=== PATIENT | female | born 1985 | race Caucasian/White ===

== ENCOUNTER 2016-09-19 16:19 | Emergency (ER) | payer MEDICAID, SELFPAY ==
[2016-09-19 18:05] LABS: Bilirubin Negative (Negative); Blood, Urine Negative (Negative); Glucose, Urine (Dipstick) Negative (Negative); Ketone, Urine Negative (Negative); Nitrite Negative (Negative); Protein, Urine (Dipstick) Negative (Neg-Trace)
[2016-09-19 18:07] LABS: Bacteria/HPF Rare-Few HPF (None Seen); RBC/HPF None Seen HPF (0-3); WBC/HPF None Seen HPF (0-3)
[2016-09-19] MEDS ORDERED: Ondansetron ODT 4 MG TAB ONE (18:17)
[2016-09-19 18:40] LABS: #Basophils 0.1 thou/uL (0.0-0.2); #Eosinphils 0.2 thou/uL (0.0-0.7); #Lymphocytes 4.6 thou/uL (1.20-3.40); #Monocytes 0.7 thou/uL (0.11-0.59); #Neutrophils 7.6 thou/uL (1.40-6.50); %Basophils 0.8 % (0.0-1.0); %Eosinophils 1.4 % (0.0-10.0); %Lymphocytes 34.9 % (21.0-51.0); Hematocrit 42.5 % (36.0-47.0); Mean Platelet Volume 8.1 fL (7.4-10.4); Red Blood Cell (RBC) Count 4.62 mill/uL (4.20-5.40); White Blood Cell (WBC) Count 13.1 thou/uL (4.8-10.8)
[2016-09-19 18:54] LABS: ALT (SGPT) 10 U/L (0-55); AST (SGOT) 15 U/L (5-34); Alkaline Phosphatase 94 U/L (40-150); Anion Gap 11 mmol/L (10-20); BUN (Urea Nitrogen) 10 mg/dL (7.0-18.7); Bilirubin, Total 0.3 mg/dL (0.2-1.2); Calc. Creatinine Clearance 0 mL/min (70-130); Calcium 9.5 mg/dL (7.8-10.44); Carbon Dioxide 24 mmol/L (22-29); Chloride 110 mmol/L (98-107); Estimated GFR-MDRD Greater than 90; Globulin 2.8 g/dL (2.4-3.5); Protein, Total 6.8 g/dL (6.0-8.3)
--- NOTE | 2016-09-19 19:28 | ERRECORD ---
[facility] EMERGENCY RECORD HPI NAUSEA/VOMITING/DIARRHEA (18:17 MPUR) CHIEF COMPLAINT: Patient presents for evaluation of nausea, Patient presents for evaluation of vomiting. HISTORIAN: History provided by patient, 2 week hx of malaise, Nausea, vomiting, body aches, fatigue. LOCATION FEMALE: No localizing symptoms. TIME COURSE: Gradual onset of symptoms. EXACERBATED BY: Patient's condition exacerbated by nothing. RELIEVED BY: Patient's condition relieved by nothing. ROS (18:42 MPUR) CONSTITUTIONAL: Historian denies fever. EYES: Historian denies eye pain. ENT: occasional rhinorrhea. CARDIOVASCULAR: Historian denies chest pain. RESPIRATORY: Historian denies cough. GI: Historian denies diarrhea; vomiting one time today. MUSCULOSKELETAL: Historian denies arthralgias. SKIN: Historian denies rash. NEUROLOGIC: Historian denies seizures. ENDOCRINE: Historian denies skin changes. HEMO/LYMPHATIC: Historian denies easy bruising. PAST MEDICAL HISTORY (16:37 JPAR) MEDICAL HISTORY: Flu vaccine up to date, Tetanus immunization up to date, Pneumococcal vaccine not up to date. FEMALE SURGICAL HISTORY: Patient has no surgical history. PSYCHIATRIC HISTORY: Psychiatric history includes, anxiety. Last Panic Attack 4-5 months. SOCIAL HISTORY: Patient denies alcohol use, Patient denies drug use, Patient currently uses tobacco, smokes cigarettes, daily, Patient has smoked for 15 years, Patient smokes 1/2 packs per day. FAMILY HISTORY: Notes: cancer. KNOWN ALLERGIES penicillin G sodium CURRENT MEDICATIONS (16:34 JPAR) None VITAL SIGNS (16:29 JPAR) VITAL SIGNS: BP: 119/69, Pulse: 68, Resp: 16, Temp: 97.9 (Oral), Pain: 0, O2 sat: 99, Time: 09/19/2016 16:29. PHYSICAL EXAM CONSTITUTIONAL: Pulse normal, Blood pressure normal, Respiratory rate normal, Patient appears non toxic, Vital signs reviewed. (18:42 MPUR) &a-1R&a+25V*p+0X*p4958M*c152B*c15G*c2P*p-0X&a-25V&a+1RName: Nicolette Marie : 1985 F31 MedRec: [id number] AcctNum: [id number] Prepared: Ginette Sep 19, 2016 23:09 by Interface Page 1 of 3 pMD [facility] EMERGENCY RECORD HEAD: Head exam included findings of head atraumatic. (18:42 MPUR) EYES: Conjunctiva, Pale, Eye exam included findings of eyelids normal to inspection, Sclera normal. (18:42 MPUR) ENT: Nose exam shows slight congestion, no nasal deformity, mucous membranes moist. (18:42 MPUR) NECK: Neck exam included findings of normal range of motion, Thyroid normal, no meningeal signs, Trachea midline, no contusions. (18:42 MPUR) RESPIRATORY CHEST: Respiratory exam included findings of no respiratory distress, Breath sounds clear, no increased work of breathing, rate nl. (18:42 MPUR) CARDIOVASCULAR: Cardiovascular exam included findings of heart rate regular rate and rhythm, Heart sounds normal. (18:42 MPUR) ABDOMEN FEMALE: Abdominal exam included findings of abdomen tender, slight tenderness in RLQ., Liver normal, Spleen normal, no distension, no mass, no peritoneal signs, no rigidity, no guarding, no rebound. (18:47 MPUR) LOWER EXTREMITY: no cyanosis, no edema. (18:42 MPUR) NEURO: Speech normal, Memory normal, alert, moving all extremities well. (18:42 MPUR) SKIN: Skin exam included findings of skin warm, dry, no rash. (18:42 MPUR) PSYCHIATRIC: Psychiatric exam included findings of patient oriented to person place and time, Affect, flat, Judgment normal, Insight normal, Depressed affect, Recent memory normal. (18:42 MPUR) MEDICATION ADMINISTRATION SUMMARY Drug Name: Zofran ODT, Dose Ordered: 4 mg, Route: Sublingual, Status: Held, Time: 18:20 09/19/2016, Detailed record available in Medication Service section. DOCTOR NOTES TEXT: I have reviewed and agree with nurse's past medical, family, and social history as documented on chart. Pt's vital signs have been reviewed. (18:42 MPUR) WBC slightly increased but pt not anemic. Urine not concentrated. Complaints consistent with viral syndrome. Encouraged rest, fluids and F/U with primary care. (18:52 MPUR) PROBLEM LIST No recorded problems DIAGNOSIS (18:57 MPUR) FINAL: PRIMARY: viral syndrome. PRESCRIPTION (18:57 MPUR) &a-1R&a+25V*p+0X*h6513I*c152B*c15G*c2P*p-0X&a-25V&a+1RName: Nicolette Marie : 1985 F31 MedRec: [id number] AcctNum: [id number] Prepared: SunSep 19, 2016 23:09 by Interface Page 2 of 3 pMD [facility] EMERGENCY RECORD Zofrpolly ODT: TABLET, RAPID DISSOLVE : 4 mg : ORAL : Quantity: 1 Unit: tab(s) Route: ORAL Schedule: every 4 hours prn Dispense: 10 May substitute. Refills: No Refills . NOTES: SL prn N & V No Refills. DISPOSITION PATIENT: Disposition Type: Discharge, Disposition: *Discharge Home. (18:57 MPUR) Patient left the department. (19:13 MBOS) Cardoza: ANEESH=ELYSSA Mendoza Jason MBOS=ELYSSA Rashid Marie MPUR=MD Laure, Rao &a-1R&a+25V*p+0X*z6739M*c152B*c15G*c2P*p-0X&a-25V&a+1RName: Nicolette Marie : 1985 F31 MedRec: [id number] AcctNum: [id number] Prepared: SunSep 19, 2016 23:09 by Interface Page 3 of 3 pMD MTDD
--- NOTE | 2016-09-19 19:34 | PICIS ---
[facility] EMERGENCY RECORD TRIAGE (SunSep 19, 2016 16:34 JPAR) TRIAGE NOTES: Nausea Vomiting and body aches 2 weeks. (SunSep 19, 2016 16:34 JPAR) PATIENT: NAME: Nicolette Marie, AGE: 31, GENDER: female, : Sat 1985, TIME OF GREET: SunSep 19, 2016 16:20, PREFERRED LANGUAGE: Turkmen, ETHNICITY: Not or , ECODE BILLING MAP: [facility], SSN: [id number], Zip Code: [address], KG WEIGHT: 42.18, PHONE: , , , PERSON ID: [id number], PCP: [facility]. (SunSep 19, 2016 16:34 JPAR) COMPLAINT: NO MENSA 1 MONTH + 3DAYS,N,V,BODY ACHES. (SunSep 19, 2016 16:34 JPAR) ADMISSION: URGENCY: 4 Non Urgent, ADMISSION SOURCE: Home, TRANSPORT: CAR, BED: TRIAGE. (SunSep 19, 2016 16:34 JPAR) ASSESSMENT: Assessment: Nausea, Vomited after eating this am not since, General body aches and pains for last week., Symptoms began 1 week, Symptoms began greater than 1 week ago. (16:37 JPAR) PAIN: No complaint of pain. (16:37 JPAR) SIRS SCORING: Heart Rate 55-109 (0), Temp range 96.8-101.1 (0), respiratory rate 12-24 (0), Mental Status altered: no (0), Infection or Suspected Infection: No. (16:37 JPAR) TRIAGE SCREENING: Patient denies suicidal ideation, Patient denies presence of domestic violence. (16:37 JPAR) PROVIDERS: TRIAGE NURSE: Mookie Mendoza RN. (SunSep 19, 2016 16:34 JPAR) VITAL SIGNS: BP 119/69, Pulse 68, Resp 16, Temp 97.9, (Oral), Pain 0, O2 Sat 99, Time 09/19/2016 16:29. (16:29 JPAR) PREVIOUS VISIT ALLERGIES: penicillin G sodium. (SunSep 19, 2016 16:34 JPAR) penicillin G sodium. (16:37 JPAR) KNOWN ALLERGIES penicillin G sodium CURRENT MEDICATIONS (16:34 JPAR) None VITAL SIGNS (16:29 JPAR) VITAL SIGNS: BP: 119/69, Pulse: 68, Resp: 16, Temp: 97.9 (Oral), Pain: 0, O2 sat: 99, Time: 09/19/2016 16:29. NURSING ASSESSMENT: FOCUSED (16:35 JPAR) CONSTITUTIONAL: Patient arrives ambulatory, Gait steady, History obtained from patient, Patient appears comfortable, Patient cooperative, Patient alert, Oriented to person, place and time, Skin warm, Skin dry, Skin normal in color, Mucous membranes pink, Mucous membranes moist, Patient complains of NV body aches. PAIN: aching pain, General Body Aches and Pains, Onset of pain 1 week, Patient is unable to relate pain to scale. RESPIRATORY: Focused respiratory assessment findings include &a-1R&a+25V*p+0X*p9524D*c152B*c15G*c2P*p-0X&a-25V&a+1RName: Cynthia December : 1985 F31 MedRec: [id number] AcctNum: [id number] Prepared: SunSep 19, 2016 19:22 by Interface Page 1 of 7 pMD [facility] EMERGENCY RECORD breath sounds clear. MUSCULOSKELETAL: Focused musculoskeletal assessment findings include normal range of motion. LACERATION: Focused laceration assessment not applicable. SAFETY: Side rails up, Cart/Stretcher in lowest position, Family at bedside, Call light within reach, Hospital ID band on. NURSING PROCEDURE: DISCHARGE NOTE (19:02 MBOS) DISCHARGE: Patient discharged to home, ambulating without assistance, driving self, unaccompanied, Summary of Care printed/ provided, Discharge instructions given to patient, Simple or moderate discharge teaching performed, Prescriptions given and instructions on side effects given, Above person(s) verbalized understanding of discharge instructions and follow-up care, Patient treated and evaluated by physician. NURSING PROCEDURE: LAB DRAW (18:28 JPAR) PATIENT IDENTIFIER: Patient actively involved in identification process, Patient's identity verified by patient stating name, Patient's identity verified by patient stating date, Patient's identity verified by hospital ID bracelet. LAB DRAW: Lab draw indicated for obtaining specimens for evaluation, Initial lab draw performed, by venipuncture, from right antecubital, in one attempt, Lab specimens labeled in the presence of the patient and sent to lab. FOLLOW-UP: After procedure, dressing applied to site, After procedure, no swelling at site, After procedure, no active bleeding from site. SAFETY: Side rails up, Cart/Stretcher in lowest position, Call light within reach, Hospital ID band on. NURSING PROCEDURE: NURSE NOTES (18:20 JPAR) NURSES NOTES: Patient in no apparent distress, Notes: Pt refused Zofran when nurse tried to administer saying she wasn't nauseated at the moment. NURSING PROCEDURE: URINE COLLECTION (17:30 JPAR) PATIENT IDENTIFIER: Patient actively involved in identification process, Patient's identity verified by patient stating name, Patient's identity verified by patient stating date, Patient's identity verified by hospital ID bracelet. URINE COLLECTION FEMALE: Urine collection indicated to monitor output, Urine collected by void, output amount (mL) 40, urine yellow in color, and clear, Specimen labeled in the presence of the patient and sent to lab. SAFETY: Side rails up, Cart/Stretcher in lowest position, Call light within reach, Hospital ID band on. ORDER DETAILS Order Name: CBC with Differential, Status: Active, Time: 18:17 &a-1R&a+25V*p+0X*e9296G*c152B*c15G*c2P*p-0X&a-25V&a+1RName: Nicolette Marie : 1985 F31 MedRec: [id number] AcctNum: [id number] Prepared: SunSep 19, 2016 19:22 by Interface Page 2 of 7 pMD [facility] EMERGENCY RECORD 09/19/2016, User: GAUTAM, - Ordered for: MD Kelsey Marcus, - Entered by: MD Kelsey Marcus - jennifer Sep 19, 2016 18:17, - Quantity: 1, Order Name: Comprehensive Metabolic Panel, Status: Active, Time: 18:17 09/19/2016, User: GAUTAM, - Ordered for: MD Kelsey Marcus, - Entered by: MD Kelsey Marcus - Ginette Sep 19, 2016 18:17, - Quantity: 1, Order Name: Test, Urine (BHCG), Status: Active, Time: 17:25 09/19/2016, User: GAUTAM, - Ordered for: MD Kelsey Marcus, - Entered by: MD Kelsey Marcus - Tue Sep 19, 2016 17:25, - Quantity: 1, Order Name: Urinalysis with Microscopic, Status: Active, Time: 17:25 09/19/2016, User: GAUTAM, - Ordered for: MD Kelsey Marcus, - Entered by: MD Kelsey Marcus - Tue Sep 19, 2016 17:25, - Quantity: 1. MEDICATION ADMINISTRATION SUMMARY Drug Name: Zofran ODT, Dose Ordered: 4 mg, Route: Sublingual, Status: Held, Time: 18:20 09/19/2016, Detailed record available in Medication Service section. MEDICATION SERVICE (18:15 MPUR) Zofran ODT: Order: Zofran ODT (ondansetron) - Dose: 4 mg : Sublingual Ordered by: Rao Kelsey MD Entered by: Rao Kelsey MD jennifer Sep 19, 2016 18:15 , Acknowledged by: Mookie Mendoza RN Sep 19, 2016 18:16, Held by: Melisa Hooper jennifer Sep 19, 2016 18:20 Reason: Patient refused:PATIENT REPORTS NOT FEELING NAUSEOUS AT THIS TIME. HPI NAUSEA/VOMITING/DIARRHEA (18:17 MPUR) CHIEF COMPLAINT: Patient presents for evaluation of nausea, Patient presents for evaluation of vomiting. HISTORIAN: History provided by patient, 2 week hx of malaise, Nausea, vomiting, body aches, fatigue. LOCATION FEMALE: No localizing symptoms. TIME COURSE: Gradual onset of symptoms. EXACERBATED BY: Patient's condition exacerbated by nothing. RELIEVED BY: Patient's condition relieved by nothing. ROS (18:42 MPUR) CONSTITUTIONAL: Historian denies fever. EYES: Historian denies eye pain. ENT: occasional rhinorrhea. CARDIOVASCULAR: Historian denies chest pain. RESPIRATORY: Historian denies cough. &a-1R&a+25V*p+0X*r0955S*c152B*c15G*c2P*p-0X&a-25V&a+1RName: CynthiaNicolette Lanette : 1985 F31 MedRec: [id number] AcctNum: [id number] Prepared: Ginette Sep 19, 2016 19:22 by Interface Page 3 of 7 pMD [facility] EMERGENCY RECORD GI: Historian denies diarrhea; vomiting one time today. MUSCULOSKELETAL: Historian denies arthralgias. SKIN: Historian denies rash. NEUROLOGIC: Historian denies seizures. ENDOCRINE: Historian denies skin changes. HEMO/LYMPHATIC: Historian denies easy bruising. PAST MEDICAL HISTORY (16:37 JPAR) MEDICAL HISTORY: Flu vaccine up to date, Tetanus immunization up to date, Pneumococcal vaccine not up to date. FEMALE SURGICAL HISTORY: Patient has no surgical history. PSYCHIATRIC HISTORY: Psychiatric history includes, anxiety. Last Panic Attack 4-5 months. SOCIAL HISTORY: Patient denies alcohol use, Patient denies drug use, Patient currently uses tobacco, smokes cigarettes, daily, Patient has smoked for 15 years, Patient smokes 1/2 packs per day. FAMILY HISTORY: Notes: cancer. PHYSICAL EXAM CONSTITUTIONAL: Pulse normal, Blood pressure normal, Respiratory rate normal, Patient appears non toxic, Vital signs reviewed. (18:42 MPUR) HEAD: Head exam included findings of head atraumatic. (18:42 MPUR) EYES: Conjunctiva, Pale, Eye exam included findings of eyelids normal to inspection, Sclera normal. (18:42 MPUR) ENT: Nose exam shows slight congestion, no nasal deformity, mucous membranes moist. (18:42 MPUR) NECK: Neck exam included findings of normal range of motion, Thyroid normal, no meningeal signs, Trachea midline, no contusions. (18:42 MPUR) RESPIRATORY CHEST: Respiratory exam included findings of no respiratory distress, Breath sounds clear, no increased work of breathing, rate nl. (18:42 MPUR) CARDIOVASCULAR: Cardiovascular exam included findings of heart rate regular rate and rhythm, Heart sounds normal. (18:42 MPUR) ABDOMEN FEMALE: Abdominal exam included findings of abdomen tender, slight tenderness in RLQ., Liver normal, Spleen normal, no distension, no mass, no peritoneal signs, no rigidity, no guarding, no rebound. (18:47 MPUR) LOWER EXTREMITY: no cyanosis, no edema. (18:42 MPUR) NEURO: Speech normal, Memory normal, alert, moving all extremities well. (18:42 MPUR) SKIN: Skin exam included findings of skin warm, dry, no rash. (18:42 MPUR) PSYCHIATRIC: Psychiatric exam included findings of patient &a-1R&a+25V*p+0X*d2792Q*c152B*c15G*c2P*p-0X&a-25V&a+1RName: Nicolette Marie : 1985 F31 MedRec: [id number] AcctNum: [id number] Prepared: SunSep 19, 2016 19:22 by Interface Page 4 of 7 pMD [facility] EMERGENCY RECORD oriented to person place and time, Affect, flat, Judgment normal, Insight normal, Depressed affect, Recent memory normal. (18:42 MPUR) EVENTS TRANSFER: Triage to Emergency Triage. (SunSep 19, 2016 16:34 JPAR) Emergency Triage to Emergency Room -05. (16:34 JPAR) Removed from Emergency Emergency Room -05. (19:13 MBOS) DOCTOR NOTES TEXT: I have reviewed and agree with nurse's past medical, family, and social history as documented on chart. Pt's vital signs have been reviewed. (18:42 MPUR) WBC slightly increased but pt not anemic. Urine not concentrated. Complaints consistent with viral syndrome. Encouraged rest, fluids and F/U with primary care. (18:52 MPUR) PROBLEM LIST No recorded problems DIAGNOSIS (18:57 MPUR) FINAL: PRIMARY: viral syndrome. DISPOSITION PATIENT: Disposition Type: Discharge, Disposition: *Discharge Home. (18:57 MPUR) Patient left the department. (19:13 MBOS) INSTRUCTION (18:59 MPUR) DISCHARGE: VIRAL SYNDROME (ADULT). SPECIAL: fluids, rest. eat balanced meals. Follow up with your Primary care physician as needed. PRESCRIPTION (18:57 MPUR) Zofran ODT: TABLET, RAPID DISSOLVE : 4 mg : ORAL : Quantity: 1 Unit: tab(s) Route: ORAL Schedule: every 4 hours prn Dispense: 10 May substitute. Refills: No Refills . NOTES: SL prn N & V No Refills. IMAGING (19:12 MBOS) *DISCHARGE INSTRUCTIONS RECEIPT: Image captured from scanner. *SUPPLY CHARGE SHEET: Image captured from scanner. RESULTS LABORATORY: Urinalysis with Microscopic Collection DT: SunSep 19, 2016 17:54, Color Yellow , Range (Yellow), Clarity Clear , Range (Clear), &a-1R&a+25V*p+0X*p7180K*c152B*c15G*c2P*p-0X&a-25V&a+1RName: Nicolette Marie : 1985 F31 MedRec: [id number] AcctNum: [id number] Prepared: SunSep 19, 2016 19:22 by Interface Page 5 of 7 pMD [facility] EMERGENCY RECORD Specific Piffard, Urine 1.010 , Range (1.005-1.030), pH, Urine 6.0 , Range (5.0-9.0), Leukocyte Negative , Range (Negative), Nitrite Negative , Range (Negative), Protein, Urine (Dipstick) Negative mg/dL, Range (Neg-Trace), Glucose, Urine (Dipstick) Negative mg/dL, Range (Negative), Ketone, Urine Negative mg/dL, Range (Negative), Urobilinogen 1.0 mg/dL, Range (0.2-1.0), Bilirubin Negative , Range (Negative), Blood, Urine Negative , Range (Negative), RBC/HPF None Seen HPF, Range (0-3), WBC/HPF None Seen HPF, Range (0-3), *Squamous Epithelial 4-6 - H HPF, Range (0-3), Bacteria/HPF Rare-Few HPF, Range (None Seen). (18:10 JPAR) Test, Urine (BHCG) Collection DT: SunSep 19, 2016 17:54, Test - Urine (BHCG) NEGATIVE , Range (NEGATIVE), Method of sensitivity- Indeterminant: results should be repeated, after 48 hours. Positive: results may be detected as early as 4-5 days before a first missed menses. Elimination of BHCG-, Elimination following first trimester D&C: 29-44 Days , Elimination following term : 8-24 Days , Specific Piffard 1.010 , Range (1.002-1.036), A dilute urine specimen may, not contain customer response representative levels of hCG. If is still, suspected, a first morning urine specimen OR a random blood specimen should, be obtained from the patient 48-72 hours later and re-tested. , . (18:10 JPAR) CBC with Differential Collection DT: SunSep 19, 2016 18:32, *White Blood Cell (WBC) Count 13.1 - H thou/uL, Range (4.8-10.8), Red Blood Cell (RBC) Count 4.62 mill/uL, Range (4.20-5.40), Hemoglobin 14.4 g/dL, Range (12.0-16.0), Hematocrit 42.5 %, Range (36.0-47.0), Mean Corpuscular Volume 92.0 fl, Range (81.0-99.0), *Mean Corpuscular Hemoglobin 31.3 - H pg, Range (27.0-31.0), Mean Corpuscular HGB CONC 34.0 g/dL, Range (32.0-36.0), *RBC Distribution Width 11.0 - L %, Range (11.5-14.5), Platelet Count 260 thou/uL, Range (130-400), Mean Platelet Volume 8.1 fL, Range (7.4-10.4), %Neutrophils 57.8 %, Range (42.0-75.0), %Lymphocytes 34.9 %, Range (21.0-51.0), %Monocytes 5.0 %, Range (0.0-10.0), %Eosinophils 1.4 %, Range (0.0-10.0), &a-1R&a+25V*p+0X*l4579E*c152B*c15G*c2P*p-0X&a-25V&a+1RName: CynthiaNicolette Lanette : 1985 F31 MedRec: [id number] AcctNum: [id number] Prepared: SunSep 19, 2016 19:22 by Interface Page 6 of 7 pMD [facility] EMERGENCY RECORD %Basophils 0.8 %, Range (0.0-1.0), *#Neutrophils 7.6 - H thou/uL, Range (1.40-6.50), *#Lymphocytes 4.6 - H thou/uL, Range (1.20-3.40), *#Monocytes 0.7 - H thou/uL, Range (0.11-0.59), #Eosinphils 0.2 thou/uL, Range (0.0-0.7), #Basophils 0.1 thou/uL, Range (0.0-0.2). (18:44 JPAR) Comprehensive Metabolic Panel Collection DT: Ginette Sep 19, 2016 18:32, Sodium 141 mmol/L, Range (136-145), Potassium 4.1 mmol/L, Range (3.5-5.1), *Chloride 110 - H mmol/L, Range (98-107), Carbon Dioxide 24 mmol/L, Range (22-29), Anion Gap 11 mmol/L, Range (10-20), BUN (Urea Nitrogen) 10 mg/dL, Range (7.0-18.7), Creatinine 0.74 mg/dL, Range (0.6-1.1), Estimated GFR-MDRD Greater than 90 , Reference Range for Estimated GFR: Greater than 90, mL/min/1.73 m2 NOTE: The MDRD equation has not been validated for use, with the elderly (over 70 years of age), women, patients with, serious comorbid condition or persons with extremes of body size, muscle, mass, or nutritional status. , Glucose 84 mg/dL, Range (70-105), Calcium 9.5 mg/dL, Range (7.8-10.44), Bilirubin, Total 0.3 mg/dL, Range (0.2-1.2), Protein, Total 6.8 g/dL, Range (6.0-8.3), NOTE: Plasma values are generally 0.3 to 0.5 g/dL higher than serum values, due to the presence of fibrinogen. , Albumin 4.0 g/dL, Range (3.5-5.0), Globulin 2.8 g/dL, Range (2.4-3.5), Alb/Glob Ratio 1.4 g/dL, Range (1.2-2.2), Alkaline Phosphatase 94 U/L, Range (40-150), AST (SGOT) 15 U/L, Range (5-34), ALT (SGPT) 10 U/L, Range (0-55). (19:00 MPUR) Cardoza: ANEESH=ELSYSA Mendoza, Mookie MBLIANA=ELYSSA Rashid, Olga MPUR=MD Laure, Rao &a-1R&a+25V*p+0X*e0080Z*c152B*c15G*c2P*p-0X&a-25V&a+1RName: Nicolette Marie : 1985 F31 MedRec: [id number] AcctNum: [id number] Prepared: Ginette Sep 19, 2016 19:22 by Interface Page 7 of 7 pMD MTDD
== END 2016-09-19 19:02 | disposition home or self-care (01) ==
LOC: NAV ERS 16:19
DX: B34.9 Viral infection, unspecified (principal); F41.9 Anxiety disorder, unspecified; F17.210 Nicotine dependence, cigarettes, uncomplicated
CPT/HCPCS: 80053; 81001; 81025; 85025; 99284; Q0162

== ENCOUNTER 2017-01-08 23:39 | Emergency (ER) | payer MEDICAID, SELFPAY ==
[2017-01-09 00:13] LABS: Bilirubin Negative (Negative); Blood, Urine Trace (Negative); Clarity Clear (Clear); Glucose, Urine (Dipstick) Negative (Negative); Leukocyte Negative (Negative); Nitrite Negative (Negative); Protein, Urine (Dipstick) Negative (Neg-Trace); Urobilinogen 0.2 mg/dL (0.2-1.0); pH, Urine 6.5 (5.0-9.0)
[2017-01-09 00:20] LABS: RBC/HPF 0-3 HPF (0-3)
[2017-01-09 00:21] LABS: Bacteria/HPF None Seen HPF (None Seen); Squamous Epithelial 0-3 HPF (0-3); WBC/HPF None Seen HPF (0-3)
== END 2017-01-09 00:28 | disposition home or self-care (01) ==
LOC: NAV ERS 23:39
DX: O99.89 Other specified diseases and conditions complicating pregnancy, childbirth and the puerperium (principal); R10.30 Lower abdominal pain, unspecified; O99.332 Smoking (tobacco) complicating pregnancy, second trimester; F17.210 Nicotine dependence, cigarettes, uncomplicated; Z3A.15 15 weeks gestation of pregnancy; O99.342 Other mental disorders complicating pregnancy, second trimester; F41.0 Panic disorder [episodic paroxysmal anxiety]; O16.2 Unspecified maternal hypertension, second trimester
CPT/HCPCS: 81003; 81015; 87086; 99284

== ENCOUNTER 2018-06-02 19:13 | Emergency (ER) | payer MEDICAID, SELFPAY ==
[2018-06-02] MEDS ORDERED: predniSONE 20 MG TAB ONE (19:55)
[2018-06-02] MEDS ORDERED: predniSONE 10 MG TAB ONE ×2 (19:55→20:16)
--- NOTE | 2018-06-02 20:03 | RAD ---
CHEST TWO VIEWS: HISTORY: Cough. Shortness of breath. Fever. COMPARISON: 04/08/2013 FINDINGS: The lungs are clear. No pneumothorax or effusion. The cardiac silhouette and mediastinal contour ar e within normal limits. IMPRESSION: No acute intrathoracic abnormality. POS: H
[2018-06-02] MEDS ORDERED: Azithromycin 250 MG TAB ONE (20:13)
[2018-06-02] MEDS ORDERED: Azithromycin 200 MG/5 ML Oral Suspension ONE (20:24)
== END 2018-06-02 20:35 | disposition home or self-care (01) ==
LOC: NAV ERS 19:13
DX: J20.9 Acute bronchitis, unspecified (principal); I10 Essential (primary) hypertension; F41.0 Panic disorder [episodic paroxysmal anxiety]; F17.210 Nicotine dependence, cigarettes, uncomplicated
CPT/HCPCS: 71046; J7506; J7512; J7620

== ENCOUNTER 2019-02-24 20:10 | Emergency (ER) | payer MEDICAID, SELFPAY ==
[2019-02-24] MEDS ORDERED: Ondansetron ODT 4 MG TAB ONE (20:36)
== END 2019-02-24 20:49 | disposition home or self-care (01) ==
LOC: NAV ERS 20:10
DX: R11.2 Nausea with vomiting, unspecified (principal); I10 Essential (primary) hypertension; F41.9 Anxiety disorder, unspecified; F17.210 Nicotine dependence, cigarettes, uncomplicated
CPT/HCPCS: 99283; Q0162

== ENCOUNTER 2019-06-22 15:04 | Emergency (ER) | payer SELFPAY | END 2019-06-22 15:46 | disposition home or self-care (01) | LOC: NAV ERS 15:04 | DX: M54.5 Low back pain (principal); I10 Essential (primary) hypertension; F41.9 Anxiety disorder, unspecified; F17.210 Nicotine dependence, cigarettes, uncomplicated | CPT/HCPCS: 99281 ==

== ENCOUNTER 2019-08-04 09:36 | Emergency (ER) | payer SELFPAY | END 2019-08-04 10:15 | disposition home or self-care (01) | LOC: NAV ERS 09:36 | DX: J06.9 Acute upper respiratory infection, unspecified (principal); I10 Essential (primary) hypertension; F41.9 Anxiety disorder, unspecified; F17.210 Nicotine dependence, cigarettes, uncomplicated | CPT/HCPCS: 99283 ==

== ENCOUNTER 2019-09-18 21:00 | Emergency (ER) | payer MEDICAID, SELFPAY | END 2019-09-18 22:08 | disposition home or self-care (01) | LOC: NAV ERS 21:00 | DX: J11.1 Influenza due to unidentified influenza virus with other respiratory manifestations (principal); I10 Essential (primary) hypertension; F41.9 Anxiety disorder, unspecified; F17.210 Nicotine dependence, cigarettes, uncomplicated | CPT/HCPCS: 99283 ==

== ENCOUNTER 2020-03-26 20:42 | Emergency (ER) | payer OTHER, SELFPAY ==
[2020-03-28 12:28] LABS: SARS-CoV-2 MS2 Positive; SARS-CoV-2 N Gene Negative; SARS-CoV-2 S Gene Negative; SARS-CoV-2 orf1ab Negative
== END 2020-03-26 21:10 | disposition home or self-care (01) ==
LOC: NAV ERS 20:42
DX: J06.9 Acute upper respiratory infection, unspecified (principal); Z20.828 Contact with and (suspected) exposure to other viral communicable diseases; I10 Essential (primary) hypertension; F41.9 Anxiety disorder, unspecified; F17.210 Nicotine dependence, cigarettes, uncomplicated
CPT/HCPCS: 87635; 99284; U0003

== ENCOUNTER 2020-07-06 13:42 | Emergency (ER) | payer OTHER ==
[2020-07-07 11:10] LABS: SARS-CoV-2 MS2 Positive; SARS-CoV-2 N Gene Negative; SARS-CoV-2 S Gene Negative; SARS-CoV-2 by NAA Not Detected (NotDetected); SARS-CoV-2 orf1ab Negative
== END 2020-07-06 14:47 | disposition home or self-care (01) ==
LOC: NAV ERS 13:42
DX: Z20.828 Contact with and (suspected) exposure to other viral communicable diseases (principal); F41.9 Anxiety disorder, unspecified; F17.210 Nicotine dependence, cigarettes, uncomplicated; I10 Essential (primary) hypertension
CPT/HCPCS: 87635; 99283; U0003

== ENCOUNTER 2020-11-19 22:22 | Emergency (ER) | payer SELFPAY | END 2020-11-19 22:44 | disposition home or self-care (01) | LOC: NAV ERS 22:22 | DX: I88.9 Nonspecific lymphadenitis, unspecified (principal); B35.9 Dermatophytosis, unspecified; I10 Essential (primary) hypertension; F17.210 Nicotine dependence, cigarettes, uncomplicated | CPT/HCPCS: 99283 ==

== ENCOUNTER 2020-12-02 18:59 | Emergency (ER) | payer OTHER, SELFPAY ==
[2020-12-03 15:53] LABS: SARS-CoV-2 PCR by NAA Not Detected (NotDetected)
== END 2020-12-02 19:50 | disposition home or self-care (01) ==
LOC: NAV ERS 18:59
DX: J06.9 Acute upper respiratory infection, unspecified (principal); Z20.822 Contact with and (suspected) exposure to COVID-19; I10 Essential (primary) hypertension; F17.210 Nicotine dependence, cigarettes, uncomplicated
CPT/HCPCS: 87635; 99283; U0003; U0005

== ENCOUNTER 2021-01-26 14:56 | Emergency (ER) | payer OTHER, SELFPAY ==
[2021-01-26 16:16] LABS: Red Blood Cell (RBC) Count 5.34 mill/uL (4.20-5.40); White Blood Cell (WBC) Count 9.9 thou/uL (4.8-10.8)
[2021-01-26 16:17] LABS: #Monocytes 0.6 thou/uL (0.11-0.59); %Eosinophils 1.7 % (0.0-10.0); %Lymphocytes 40.2 % (21.0-51.0); %Monocytes 6.3 % (0.0-10.0); %Neutrophils 50.7 % (42.0-75.0); Hemoglobin 16.1 g/dL (12.0-16.0); Mean Corpuscular HGB CONC 32.1 g/dL (32.0-36.0); Mean Corpuscular Hemoglobin 30.1 pg (27.0-31.0); Mean Corpuscular Volume 93.7 fL (78.0-98.0); Platelet Count 229 thou/uL (130-400); RBC Distribution Width 11.2 % (11.5-14.5)
[2021-01-26 16:18] LABS: #Basophils 0.1 thou/uL (0.0-0.2); #Eosinphils 0.2 thou/uL (0.0-0.7)
== END 2021-01-26 15:50 | disposition home or self-care (01) ==
LOC: NAV ERS 14:56
DX: K64.8 Other hemorrhoids (principal); K62.5 Hemorrhage of anus and rectum; I10 Essential (primary) hypertension; F17.210 Nicotine dependence, cigarettes, uncomplicated
CPT/HCPCS: 85025; 99283

== ENCOUNTER 2021-03-01 13:10 | Emergency (ER) | payer SELFPAY ==
[2021-03-02 11:01] LABS: SARS-CoV-2 PCR by NAA Not Detected (NotDetected)
== END 2021-03-01 13:45 | disposition home or self-care (01) ==
LOC: NAV ERS 13:10
DX: A08.4 Viral intestinal infection, unspecified (principal); R53.81 Other malaise; R05 Cough; Z20.822 Contact with and (suspected) exposure to COVID-19; I10 Essential (primary) hypertension; F17.210 Nicotine dependence, cigarettes, uncomplicated
CPT/HCPCS: 99284; U0003; U0005

== ENCOUNTER 2021-05-16 12:32 | Emergency (ER) | payer SELFPAY ==
[2021-05-17 07:56] LABS: SARS-CoV-2 PCR by NAA Not Detected (NotDetected)
== END 2021-05-16 13:30 | disposition home or self-care (01) ==
LOC: NAV ERS 12:32
DX: R19.7 Diarrhea, unspecified (principal); R11.0 Nausea; Z20.822 Contact with and (suspected) exposure to COVID-19
CPT/HCPCS: 99283; U0003; U0005

== ENCOUNTER 2021-06-23 21:42 | Emergency (ER) | payer SELFPAY | END 2021-06-23 22:22 | disposition home or self-care (01) | LOC: NAV ERS 21:42 | DX: B34.9 Viral infection, unspecified (principal); F17.210 Nicotine dependence, cigarettes, uncomplicated; I10 Essential (primary) hypertension; Z79.899 Other long term (current) drug therapy | CPT/HCPCS: 99283 ==

== ENCOUNTER 2021-06-28 11:31 | Emergency (ER) | payer SELFPAY | END 2021-06-28 12:30 | disposition left against medical advice (07) | LOC: NAV ERS 11:31 | DX: Z53.21 Procedure and treatment not carried out due to patient leaving prior to being seen by health care provider (principal) ==

== ENCOUNTER 2021-06-28 21:50 | Emergency (ER) | payer SELFPAY ==
[2021-06-28] MEDS ORDERED: Clindamycin 150 MG CAP ONE (22:32)
== END 2021-06-28 22:35 | disposition home or self-care (01) ==
LOC: NAV ERS 21:50
DX: K04.7 Periapical abscess without sinus (principal); K02.9 Dental caries, unspecified; F17.210 Nicotine dependence, cigarettes, uncomplicated; I10 Essential (primary) hypertension
CPT/HCPCS: 99283

== ENCOUNTER 2021-08-15 13:00 | Emergency (ER) | payer MEDICAID, SELFPAY ==
[2021-08-16 09:05] LABS: SARS-CoV-2 PCR by NAA Not Detected (NotDetected)
== END 2021-08-15 13:40 | disposition home or self-care (01) ==
LOC: NAV ERS 13:00
DX: B34.9 Viral infection, unspecified (principal); Z20.822 Contact with and (suspected) exposure to COVID-19; F17.210 Nicotine dependence, cigarettes, uncomplicated
CPT/HCPCS: 99283; U0003; U0005

== ENCOUNTER 2021-08-26 18:15 | Emergency (ER) | payer MEDICAID, SELFPAY ==
[2021-08-27 23:28] LABS: SARS-CoV-2 PCR by NAA Not Detected (NotDetected)
== END 2021-08-26 19:18 | disposition home or self-care (01) ==
LOC: NAV ERS 18:15
DX: J20.9 Acute bronchitis, unspecified (principal); Z20.822 Contact with and (suspected) exposure to COVID-19; I10 Essential (primary) hypertension; F17.210 Nicotine dependence, cigarettes, uncomplicated
CPT/HCPCS: 71045; 87804; U0003; U0005

== ENCOUNTER 2022-01-28 20:34 | Emergency (ER) | payer OTHER, SELFPAY ==
[2022-01-28] MEDS ORDERED: Oseltamivir 6 MG/ML ORAL SUSP ONE (21:30)
== END 2022-01-28 21:35 | disposition home or self-care (01) ==
LOC: NAV ERS 20:34
DX: J11.1 Influenza due to unidentified influenza virus with other respiratory manifestations (principal); F17.210 Nicotine dependence, cigarettes, uncomplicated
CPT/HCPCS: 99283

== ENCOUNTER 2022-05-01 16:03 | Emergency (ER) | payer OTHER ==
[2022-05-01 16:37] LABS: #Basophils 0.1 thou/uL (0.0-0.2); #Eosinphils 0.1 thou/uL (0.0-0.7); #Monocytes 0.7 thou/uL (0.11-0.59); #Neutrophils 7.4 thou/uL (1.40-6.50); %Basophils 0.7 % (0.0-1.0); %Eosinophils 0.6 % (0.0-10.0); %Lymphocytes 32.5 % (21.0-51.0); %Neutrophils 60.3 % (42.0-75.0); Mean Corpuscular HGB CONC 32.7 g/dL (32.0-36.0); Mean Corpuscular Hemoglobin 30.7 pg (27.0-31.0); Mean Corpuscular Volume 93.9 fL (78.0-98.0); Mean Platelet Volume 9.1 fL (7.4-10.4); Platelet Count 238 thou/uL (130-400); RBC Distribution Width 11.7 % (11.5-14.5); Red Blood Cell (RBC) Count 4.58 mill/uL (4.20-5.40); White Blood Cell (WBC) Count 12.3 thou/uL (4.8-10.8)
[2022-05-01] MEDS ORDERED: Ketorolac Tromethamine 30 MG/ML VIAL ONE (16:39)
[2022-05-01] MEDS ORDERED: Sodium Chloride 0.9% 1,000 ML ONE (16:39)
[2022-05-01 17:08] LABS: ALT (SGPT) 10 U/L (8-55); AST (SGOT) 15 U/L (5-34); Alkaline Phosphatase 88 U/L (40-110); Anion Gap 16 mmol/L (10-20); BUN (Urea Nitrogen) 7 mg/dL (7.0-18.7); Bilirubin, Total 0.5 mg/dL (0.2-1.2); CK (CPK) 89 U/L (29-168); Calc. Creatinine Clearance 0 mL/min (70-130); Calcium 9.2 mg/dL (7.8-10.44); Carbon Dioxide 21 mmol/L (22-29); Chloride 107 mmol/L (98-107); Estimated GFR 116; Globulin 2.1 g/dL (2.4-3.5); Glucose 96 mg/dL (70-105); Lipase 22 U/L (8-78); Potassium 3.5 mmol/L (3.5-5.1); Protein, Total 6.1 g/dL (6.0-8.3); Sodium 140 mmol/L (136-145)
== END 2022-05-01 17:33 | disposition home or self-care (01) ==
LOC: NAV ERS 16:03
DX: R07.89 Other chest pain (principal); Z20.822 Contact with and (suspected) exposure to COVID-19; I10 Essential (primary) hypertension; F17.210 Nicotine dependence, cigarettes, uncomplicated
CPT/HCPCS: 71045; 80053; 82550; 83690; 84484; 85025; 85379; 93005; 96361; 96374; J1885; J7050; U0003; U0005

== ENCOUNTER 2022-05-23 17:40 | Emergency (ER) | payer OTHER ==
[2022-05-23] MEDS ORDERED: Albuterol Sulfate 2.5 mg/3 ml Neb ONE (17:54)
== END 2022-05-23 18:20 | disposition home or self-care (01) ==
LOC: NAV ERS 17:40
DX: J06.9 Acute upper respiratory infection, unspecified (principal); J98.01 Acute bronchospasm; F17.210 Nicotine dependence, cigarettes, uncomplicated; Z20.822 Contact with and (suspected) exposure to COVID-19
CPT/HCPCS: 71046; J7611; U0003; U0005

== ENCOUNTER 2022-08-01 14:59 | Emergency (ER) | payer OTHER | END 2022-08-01 16:15 | disposition home or self-care (01) | LOC: NAV ERS 14:59 | DX: M79.89 Other specified soft tissue disorders (principal); F17.210 Nicotine dependence, cigarettes, uncomplicated | CPT/HCPCS: 99283 ==

== ENCOUNTER 2022-11-14 14:38 | Emergency (ER) | payer OTHER ==
[2022-11-14] MEDS ORDERED: Lidocaine 1% (PF) 30 ML VIAL ONE (15:53)
== END 2022-11-14 16:45 | disposition home or self-care (01) ==
LOC: NAV ERS 14:38
DX: L60.0 Ingrowing nail (principal); I10 Essential (primary) hypertension; F17.210 Nicotine dependence, cigarettes, uncomplicated
CPT/HCPCS: 11750; J2001

== ENCOUNTER 2023-04-17 13:04 | Emergency (ER) | payer OTHER | END 2023-04-17 13:33 | disposition home or self-care (01) | LOC: NAV ERS 13:04 | DX: H60.502 Unspecified acute noninfective otitis externa, left ear (principal); I10 Essential (primary) hypertension; F17.210 Nicotine dependence, cigarettes, uncomplicated | CPT/HCPCS: 99282 ==

== ENCOUNTER 2023-09-14 12:37 | Emergency (ER) | payer OTHER | END 2023-09-14 13:06 | disposition home or self-care (01) | LOC: NAV ERS 12:37 | DX: L60.0 Ingrowing nail (principal); I10 Essential (primary) hypertension; F17.210 Nicotine dependence, cigarettes, uncomplicated | CPT/HCPCS: 99283 ==

== ENCOUNTER 2024-05-29 21:26 | Emergency (ER) | payer SELFPAY ==
[2024-05-29 22:12] LABS: #Basophils 0.1 thou/uL (0.0-0.2); #Eosinphils 0.2 thou/uL (0.0-0.7); #Lymphocytes 4.8 thou/uL (1.20-3.40); #Monocytes 0.9 thou/uL (0.11-0.59); #Neutrophils 8.1 thou/uL (1.40-6.50); %Basophils 0.7 % (0.0-1.0); %Eosinophils 1.5 % (0.0-10.0); %Monocytes 6.3 % (0.0-10.0); %Neutrophils 57.6 % (42.0-75.0); Hematocrit 43.3 % (36.0-47.0); Hemoglobin 14.6 g/dL (12.0-16.0); Mean Corpuscular HGB CONC 33.7 g/dL (32.0-36.0); Mean Corpuscular Hemoglobin 29.8 pg (27.0-31.0); Mean Corpuscular Volume 88.3 fl (78.0-98.0); Mean Platelet Volume 8.1 fL (7.4-10.4); Platelet Count 234 10x3/uL (130-400); RBC Distribution Width 10.8 % (11.5-14.5)
[2024-05-29 22:15] LABS: Troponin I Less than 0.010 ng/mL (< 0.028)
[2024-05-29 22:27] LABS: Bilirubin Negative (Negative); Blood, Urine Large (Negative); Clarity Clear (Clear); Glucose, Urine (Dipstick) Negative (Negative); Ketone, Urine Negative (Negative); Leukocyte Small (Negative); Nitrite Negative (Negative); Pregnancy Test - Urine (BHCG) Negative (Negative); Protein, Urine (Dipstick) Negative (Neg-Trace); Specific Gravity 1.002 (1.002-1.036); Specific Gravity, Urine 1.002 (1.002-1.036); Urobilinogen 0.2 mg/dL (Less than 2)
[2024-05-29 22:28] LABS: Amphetamine Not Detected (NotDetected); Barbiturates Screen Not Detected (NotDetected); Benzodiazepine Screen Not Detected (NotDetected); Cocaine Metabolite Screen Not Detected (NotDetected); Methadone Not Detected (NotDetected); Methamphetamine Not Detected (NotDetected); Opiate Screen Not Detected (NotDetected); Oxycodone Screen Not Detected (NotDetected); Phencyclidine (PCP) Not Detected (NotDetected); Pregu Control Background? CLEAR/WHITE (CLR/WHITE); Pregu Control Bar Appear? YES (CONTROL BAR); THC/Cannabinoid Screen Not Detected (NotDetected); Tricyclic Screen Not Detected (NotDetected)
[2024-05-29 22:32] LABS: CAUTI Indications for Culture Fever or rigors; Squamous Epithelial 0-3 HPF (0-3); WBC/HPF 0-3 HPF (0-3); Yeast-Budding Rare HPF (None Seen)
[2024-05-29 22:33] LABS: Urine Culture Reflex No No
[2024-05-29 22:41] LABS: ALT (SGPT) 9 U/L (8-55); AST (SGOT) 17 U/L (5-34); Albumin 3.9 g/dL (3.5-5.0); Alkaline Phosphatase 103 U/L (40-110); Anion Gap 12 mmol/L (10-20); BUN (Urea Nitrogen) 6 mg/dL (7.0-18.7); Bilirubin, Total 0.3 mg/dL (0.2-1.2); Calc. Creatinine Clearance 0 mL/min (70-130); Calcium 9.5 mg/dL (7.8-10.44); Carbon Dioxide 26 mmol/L (22-29); Chloride 106 mmol/L (98-107); Estimated GFR 107; Globulin 2.8 g/dL (2.4-3.5); Glucose 88 mg/dL (70-105); Potassium 3.7 mmol/L (3.5-5.1); Protein, Total 6.7 g/dL (6.0-8.3); Sodium 140 mmol/L (136-145)
== END 2024-05-29 22:46 | disposition home or self-care (01) ==
LOC: NAV ERS 21:26
DX: R07.2 Precordial pain (principal); I10 Essential (primary) hypertension; F17.210 Nicotine dependence, cigarettes, uncomplicated
CPT/HCPCS: 71046; 80053; 80306; 81001; 81025; 84484; 85025; 85379; 93005

== ENCOUNTER 2024-06-07 15:42 | Emergency (ER) | payer SELFPAY ==
[2024-06-07 17:33] LABS: SARS-CoV-2 E Target Positive; SARS-CoV-2 N2 Target Positive; SARS-CoV-2 NAA Rapid Test DETECTED (NotDetected); SARS-CoV-2 RdRP gene Positive
== END 2024-06-07 17:10 | disposition home or self-care (01) ==
LOC: NAV ERS 15:42
DX: B34.9 Viral infection, unspecified (principal); F17.210 Nicotine dependence, cigarettes, uncomplicated; I10 Essential (primary) hypertension
CPT/HCPCS: 87804; 99283; U0002

== ENCOUNTER 2024-08-08 19:12 | Emergency (ER) | payer MEDICAID, SELFPAY ==
[2024-08-08 19:48] LABS: #Basophils 0.1 thou/uL (0.0-0.2); #Eosinophils 0.3 thou/uL (0.0-0.7); #Lymphocytes 4.6 thou/uL (1.20-3.40); #Monocytes 0.9 thou/uL (0.11-0.59); #Neutrophils 7.7 thou/uL (1.40-6.50); %Basophils 0.9 % (0.0-1.0); %Lymphocytes 33.6 % (21.0-51.0); %Monocytes 6.5 % (0.0-10.0); Hematocrit 44.5 % (36.0-47.0); Hemoglobin 15.7 g/dL (12.0-16.0); Mean Corpuscular HGB CONC 35.2 g/dL (32.0-36.0); Mean Corpuscular Hemoglobin 31.5 pg (27.0-31.0); Mean Corpuscular Volume 89.3 fl (78.0-98.0); Platelet Count 260 10x3/uL (130-400); RBC Distribution Width 10.8 % (11.5-14.5); Red Blood Cell (RBC) Count 4.98 mill/uL (4.20-5.40); White Blood Cell (WBC) Count 13.5 10x3/uL (4.8-10.8)
[2024-08-08 19:54] LABS: Pregnancy Test - Urine (BHCG) Negative (Negative); Pregu Control Background? CLEAR/WHITE (CLR/WHITE); Pregu Control Bar Appear? YES (CONTROL BAR); Specific Gravity 1.003 (1.002-1.036)
[2024-08-08 20:01] LABS: Amphetamine Not Detected (NotDetected); Barbiturates Screen Not Detected (NotDetected); Benzodiazepine Screen Not Detected (NotDetected); Cocaine Metabolite Screen Not Detected (NotDetected); Methadone Not Detected (NotDetected); Methamphetamine Not Detected (NotDetected); Opiate Screen Not Detected (NotDetected); Oxycodone Screen Not Detected (NotDetected); Phencyclidine (PCP) Not Detected (NotDetected); THC/Cannabinoid Screen Not Detected (NotDetected); Tricyclic Screen Not Detected (NotDetected)
[2024-08-08 20:03] LABS: ALT (SGPT) 8 U/L (8-55); AST (SGOT) 17 U/L (5-34); Albumin 3.9 g/dL (3.5-5.0); Alkaline Phosphatase 115 U/L (40-110); Anion Gap 14 mmol/L (10-20); BUN (Urea Nitrogen) 6 mg/dL (7.0-18.7); Bilirubin, Total 0.3 mg/dL (0.2-1.2); Calc. Creatinine Clearance 0 mL/min (70-130); Calcium 9.5 mg/dL (7.8-10.44); Carbon Dioxide 25 mmol/L (22-29); Chloride 106 mmol/L (98-107); Estimated GFR 105; Globulin 3.1 g/dL (2.4-3.5); Glucose 76 mg/dL (70-105); Potassium 3.6 mmol/L (3.5-5.1); Sodium 141 mmol/L (136-145)
[2024-08-11 14:31] LABS: Chlam.trachomatis by PCR,Urine Not Detected (NotDetected); GC N.gonorrhoeae PCR,UrineVOID Not Detected (NotDetected)
== END 2024-08-08 20:24 | disposition home or self-care (01) ==
LOC: NAV ERS 19:12
DX: N93.9 Abnormal uterine and vaginal bleeding, unspecified (principal); F17.210 Nicotine dependence, cigarettes, uncomplicated
CPT/HCPCS: 36415; 80053; 80306; 81025; 85025; 87491; 87591; 99284

== ENCOUNTER 2024-10-26 10:11 | Emergency (ER) | payer MEDICAID ==
[2024-10-26 10:42] LABS: #Basophils 0.1 thou/uL (0.0-0.2); #Eosinophils 0.1 thou/uL (0.0-0.7); #Lymphocytes 3.3 thou/uL (1.20-3.40); #Monocytes 0.7 thou/uL (0.11-0.59); #Neutrophils 7.1 thou/uL (1.40-6.50); %Basophils 0.8 % (0.0-1.0); %Eosinophils 1.2 % (0.0-10.0); %Lymphocytes 29.3 % (21.0-51.0); %Monocytes 6.3 % (0.0-10.0); %Neutrophils 62.4 % (42.0-75.0); Hematocrit 44.3 % (36.0-47.0); Mean Corpuscular HGB CONC 33.9 g/dL (32.0-36.0); Mean Corpuscular Hemoglobin 29.8 pg (27.0-31.0); Mean Corpuscular Volume 87.8 fl (78.0-98.0); Mean Platelet Volume 8.8 fL (7.4-10.4); Platelet Count 246 10x3/uL (130-400); RBC Distribution Width 10.8 % (11.5-14.5); Red Blood Cell (RBC) Count 5.05 mill/uL (4.20-5.40); White Blood Cell (WBC) Count 11.3 10x3/uL (4.8-10.8)
[2024-10-26 10:56] LABS: BHCG - Serum Negative (NEGATIVE); Pregs Control Bar Appear? YES (CONTROL BAR)
[2024-10-26 11:01] LABS: Troponin I Less than 0.010 ng/mL (< 0.028)
[2024-10-26 11:03] LABS: ALT (SGPT) 25 U/L (Less than 34); AST (SGOT) 28 U/L (11-34); Albumin 4.1 g/dL (3.1-4.5); Alkaline Phosphatase 97 U/L (40-110); Anion Gap 12 mmol/L (10-20); BUN (Urea Nitrogen) 6 mg/dL (7.0-18.7); Bilirubin, Total 0.4 mg/dL (0.3-1.2); Calc. Creatinine Clearance 0 mL/min (70-130); Calcium 9.6 mg/dL (7.8-10.44); Carbon Dioxide 23 mmol/L (22-29); Chloride 107 mmol/L (98-107); Estimated GFR 115; Globulin 2.6 g/dL (2.4-3.5); Glucose 87 mg/dL (70-105); Potassium 3.8 mmol/L (3.5-5.1); Protein, Total 6.7 g/dL (6.0-8.3); Sodium 138 mmol/L (136-145)
== END 2024-10-26 11:20 | disposition home or self-care (01) ==
LOC: NAV ERS 10:11
DX: R07.89 Other chest pain (principal); F17.210 Nicotine dependence, cigarettes, uncomplicated; Z55.6 Problems related to health literacy
CPT/HCPCS: 36415; 80053; 84484; 84703; 85025; 93005; 99285

== ENCOUNTER 2025-07-04 23:07 | Emergency (ER) | payer MEDICAID ==
[2025-07-04] MEDS ORDERED: Aspirin Chewable 81 MG TAB ONE (23:28)
[2025-07-04 23:29] LABS: #Basophils 0.1 thou/uL (0.0-0.2); #Eosinophils 0.2 thou/uL (0.0-0.7); #Lymphocytes 5.3 thou/uL (1.20-3.40); #Monocytes 0.9 thou/uL (0.11-0.59); #Neutrophils 7.0 thou/uL (1.40-6.50); %Basophils 0.8 % (0.0-1.0); %Eosinophils 1.6 % (0.0-10.0); %Lymphocytes 39.3 % (21.0-51.0); %Monocytes 6.4 % (0.0-10.0); %Neutrophils 51.9 % (42.0-75.0); Hematocrit 43.3 % (36.0-47.0); Hemoglobin 15.7 g/dL (12.0-16.0); Mean Corpuscular Hemoglobin 30.3 pg (27.0-31.0); Mean Corpuscular Volume 83.7 fl (78.0-98.0); Platelet Count 255 10x3/uL (130-400); Red Blood Cell (RBC) Count 5.18 mill/uL (4.20-5.40); White Blood Cell (WBC) Count 13.6 10x3/uL (4.8-10.8)
[2025-07-04 23:45] LABS: ALT (SGPT) 10 U/L (Less than 34); AST (SGOT) 23 U/L (11-34); Albumin 4.1 g/dL (3.1-4.5); Alkaline Phosphatase 100 U/L (40-110); Anion Gap 14 mmol/L (10-20); BUN (Urea Nitrogen) 8 mg/dL (7.0-18.7); Bilirubin, Total 0.2 mg/dL (0.3-1.2); Calc. Creatinine Clearance 0 mL/min (70-130); Calcium 9.2 mg/dL (7.8-10.44); Carbon Dioxide 23 mmol/L (22-29); Chloride 105 mmol/L (98-107); Globulin 2.4 g/dL (2.4-3.5); Glucose 111 mg/dL (70-105); Potassium 3.4 mmol/L (3.5-5.1); Sodium 139 mmol/L (136-145)
[2025-07-04 23:48] LABS: Troponin I Less than 0.010 ng/mL (< 0.028)
[2025-07-05 00:08] LABS: Glucose, Urine (Dipstick) Negative (Negative); Leukocyte Negative (Negative); Protein, Urine (Dipstick) Negative (Neg-Trace); Specific Gravity, Urine Less/Equal 1.005 (1.005-1.030)
[2025-07-05 00:10] LABS: Pregnancy Test - Urine (BHCG) Negative (Negative); Pregu Control Background? CLEAR/WHITE (CLR/WHITE); Pregu Control Bar Appear? YES (CONTROL BAR)
[2025-07-05 00:13] LABS: Bacteria/HPF None Seen HPF (None Seen); CAUTI Indications for Culture Dysuria,urgency,freq; RBC/HPF None Seen HPF (0-3); WBC/HPF None Seen HPF (0-3)
[2025-07-05 00:14] LABS: Urine Culture Reflex No No
[2025-07-05 00:16] LABS: Cocaine Metabolite Screen Negative (Negative); THC/Cannabinoid Screen Negative (Negative); Tricyclic Screen Negative (Negative)
== END 2025-07-05 00:22 | disposition home or self-care (01) ==
LOC: NAV ERS 23:07
DX: R07.89 Other chest pain (principal); F32.A Depression, unspecified; F41.9 Anxiety disorder, unspecified; F17.210 Nicotine dependence, cigarettes, uncomplicated
CPT/HCPCS: 71046; 80053; 80306; 81001; 81025; 84484; 85025; 85379; 93005